=== PATIENT | female | born 1995 | race Caucasian/White ===

== ENCOUNTER 2019-08-14 10:01 | Emergency (ER) | payer OTHER, SELFPAY ==
[2019-08-14 10:12] VITALS: BP 117/83; PULSE 99; RESP 20; TEMP 37.8; O2SAT 99
--- NOTE | 2019-08-14 10:13 | ED.GENADULT ---
HPI - General Adult General Chief complaint: Skin/Abscess/Foreign Body Stated complaint: bug bite on right leg Time Seen by Provider: 08/14/19 10:20 Source: patient and RN notes reviewed Mode of arrival: ambulatory Limitations: no limitations History of Present Illness HPI narrative: This is a 24 years old female presented to the office for evaluation of insect bite since yesterday. She was outside in her yard when she got multiple insect bite on her right lower legs near her ankle. She is otherwise feeling well. No treatment prior to arrival. She is breast-feeding her 1 year ago child. Related Data Allergies Allergy/AdvReac Type Severity Reaction Status Date / Time No Known Allergies Allergy Verified 08/14/19 10:19 Review of Systems Review of Systems: Narrative: CONSTITUTIONAL: Denies fever or feeling achy/sweating ENT: Denies congestion CARDIOVASCULAR: Denies chest pain RESPIRATORY: Denies cough GASTROINTESTINAL: Denies abdominal pain, nausea, vomiting SKIN: Reports itchy red bumps on her right legs MUSCULOSKELETAL: Denies joints pain NEUROLOGIC: Denies lightheaded PMFSH Comments At time of signature, I agree with nursing past medical, surgical, social and family history. There is no relevant family history pertinent to the presenting complaint. Exam Narrative: Exam Narrative: GENERAL: This is a well-nourished, well-developed patient, in no apparent distress. NECK: Neck supple, non-tender without lymphadenopathy, masses or thyromegaly. CARDIOVASCULAR: Regular rate and rhythm without murmurs, gallops, or rubs. RESPIRATORY: Clear to auscultation. Breath sounds equal bilaterally. No wheezes, rales, or rhonchi. GASTROINTESTINAL: Abdomen soft, non-tender, nondistended. Bowel sounds are active. No hepato-splenomegaly, or palpable masses. No guarding. SKIN: right later lower leg near lateral ankle noted a couple localize erythema nodule lesion, medial aspect noted two vesicular-erythema lesion without lymphadenititis. No calf edematous/erythema. NEURO: awake, alert, and oriented to person, place and time. There were no obvious focal neurologic abnormalities. Steady gait [place] Coma Scale Eye Opening: Spontaneous 4 [place] Coma Scale Motor: Obeys Commands 6 [place] Coma Scale Verbal: Oriented 5 Medical Decision Making MDM Narrative Medical decision making narrative: Discharge instructions reviewed with patient, as well as provided in writing per nursing staff. The instructions also include specific and strict return/GO TO THE ER as well as f/u information. All questions have been answered, and the patient deny any further questions with discharge and discharge plan. Differential Diagnosis Differential Diagnosis: Contact/allergic dermatitis, atopic dermatitis, psoriasis, eczema, cellulitis, tinea, erythema multiforme, viral exanthem Critical Care Time Critical Care Time Critical Care Time: No Discharge Plan Discharge Clinical Impression: Insect bite Qualifiers: Encounter type: initial encounter Site of insect bite: lower leg Laterality: right Qualified Code(s): S80.861A - Insect bite (nonvenomous), right lower leg, initial encounter Patient Disposition: Home, Self-Care Condition: Stable Instructions: Insect Bite or Sting (ED) Additional Instructions: Your tetanus booster is good after 10-year unless you have a major wound nocardial may need a booster in 5 years You can stop taking prednisone when redness resolved; make sure NOT breast feeling at least 4hours after taking prednisone. Wash the area with soap and cool water only. Avoid scratching when possible to prevent worsening of the condition and disruption of the skin that could lead to bacterial infection To relieve itching, place a cool washcloth or some ice over the area that itches, rather than scratching You can also take 25mg of benadryl at night to help reduce itchiness/swelling/redness Follow up with primary care provider or seek ER if you magana
[2019-08-14] MEDS: TETANUS,DIPHTHERIA,AC PERTUSSIS ADULT 0.5 ML (ADACEL) IM (10:39)
== END 2019-08-14 10:55 | disposition home or self-care (01) ==
PROVIDERS: Emergency Provider Nurse Practitioner; PCP Nurse Practitioner Adult Health
DX: S90.561A Insect bite (nonvenomous), right ankle, initial encounter (principal); W57.XXXA Bitten or stung by nonvenomous insect and other nonvenomous arthropods, initial encounter
CPT/HCPCS: 90471; 90715; 99213; G0463

== ENCOUNTER 2020-05-26 17:04 | Emergency (ER) | payer OTHER, SELFPAY ==
--- NOTE | ~2020-05-26 | XR_ITS ---
XR knee LT min 4V 05/26/2020 17:37 INDICATION: Left knee pain PROCEDURE: 5 views left knee COMPARISON: No prior studies for comparison. FINDINGS: Fracture, dislocation or subluxation is not identified. No significant joint effusion. The soft tissues appear within normal limits. No foreign bodies are identified. IMPRESSION: 1: NO ACUTE BONE OR JOINT ABNORMALITY IDENTIFIED. Reviewed, dictated and finalized at location [facility]
[2020-05-26 17:12] VITALS: BP 116/65; PULSE 84; RESP 20; TEMP 36.8; O2SAT 99
--- NOTE | 2020-05-26 17:21 | ED.LOWEXIN ---
HPI - Extremity Injury (Lower) General Chief Complaint: Extremity Injury, Lower Stated Complaint: left knee injury Time Seen by Provider: 05/26/20 17:21 Source: patient Mode of arrival: ambulatory Limitations: no limitations History of Present Illness HPI Narrative: Aida Zaldivar is a 25 yo female with no PMH who comes to [facility] for evaluation of left knee after twisting injury while caring a young child. Her foot did move when she turned to direction and the pain dropped her to her knee she has been unable to walk on her L leg since then and on exam her kneecap is extremely lax Patient denies any prior injury or trauma Related Data Home Medications Medication Instructions Recorded Confirmed norethindrone (contraceptive) 0.35 mg PO DAILY 05/26/20 05/26/20 [Norlyda] Allergies Allergy/AdvReac Type Severity Reaction Status Date / Time No Known Allergies Allergy Verified 05/26/20 17:39 Review of Systems Review of Systems: Narrative: CONSTITUTIONAL: Denies fever, chills, sweats. EYES: Denies visual changes, redness, discharge. ENT: Denies rhinorrhea, congestion, sore throat, otalgia. CARDIOVASCULAR: Denies chest pain, palpitations, edema. RESPIRATORY: Denies dyspnea, wheezing, cough GASTROINTESTINAL: Denies abdominal pain, nausea, vomiting, diarrhea. GENITOURINARY: Denies dysuria, hematuria, abnormal discharge SKIN: Denies rash or itching. NEUROLOGIC: Denies numbness, or focal weakness. PSYCHIATRIC: Denies anxiety or depression. WPain and weakness in L left knee PMFSH Past Medical History Medical History No acute medical problems Family History Family History Other No acute medical problems Social History Social History (Updated 05/26/20 @ 17:44 by Andreia Rivera CNP) Smoking status: Never smoker Alcohol intake: current Comments At time of signature, I agree with nursing past medical, surgical, social and family history. There is no relevant family history pertinent to the presenting complaint. Exam Narrative: Exam Narrative: GENERAL: This is a well-nourished, well-developed patient, in moderate distress. HEAD: normocephalic, atraumatic. EYES:. Sclera clear/white. Vision is grossly intact. EARS: External ears normal, Hearing grossly intact. NOSE: External nose normal without nasal discharge, nares without redness, no rhinorrhea. THROAT: Mucous membranes moist, NECK: Neck supple, CARDIOVASCULAR: Regular rate and rhythm without murmurs, gallops, or rubs. RESPIRATORY: Clear to auscultation. Breath sounds equal bilaterally. No wheezes, rales, or rhonchi. GASTROINTESTINAL: Abdomen soft, SKIN: warm, intact with no suspicious lesions or rash, good texture and turgor. NEURO: awake, alert, and oriented to person, place and time. There were no obvious focal neurologic abnormalities. Steady gait EXTREMITIES: Normal range of motion. Moderate blood on the left unable to stand without pain there is laxity in her patellae with more pain on the tibial plateau and left superior pole of patella. Unable to walk without pain Skin warm, pulses intact BACK: Nontender without deformity Course Course Emergency Course: Patient came after torsional injury to left knee X-ray of left knee is negative for acute bone or joint abnormality no significant joint effusion Patient already on crutches but will put in a knee immobilizer give antiinflammatories and pain medication ExplainedRICE to patient over the weekend, ectopy appointment with orthopod Vital Signs Vital signs: Vital Signs Temperature 98.3 F 05/26/20 17:12 Pulse Rate 84 05/26/20 17:12 Respiratory Rate 20 05/26/20 17:12 Blood Pressure 116/65 05/26/20 17:12 Pulse Oximetry 99 05/26/20 17:12 Temperature 98.3 F 05/26/20 17:12 Pulse Rate 84 05/26/20 17:12 Respiratory Rate 20 05/26/20 17:12 Blood Pressure 11
== END 2020-05-26 17:55 | disposition home or self-care (01) ==
PROVIDERS: Emergency Provider Nurse Practitioner; PCP Nurse Practitioner Adult Health
DX: M25.562 Pain in left knee (principal)
CPT/HCPCS: 73564; 99213; G0463; L1830

== ENCOUNTER 2022-03-18 10:27 | Emergency (ER) | payer OTHER, SELFPAY ==
[2022-03-18 10:34] VITALS: BP 121/73; PULSE 96; RESP 16; TEMP 37.6; O2SAT 100
--- NOTE | 2022-03-18 11:16 | ED.URI ---
HPI - URI/Sore Throat General Chief Complaint: Upper Respiratory Infection Stated Complaint: ears clogged fatigue Time Seen by Provider: 03/18/22 11:16 Source: patient, RN notes reviewed and old records reviewed Mode of arrival: ambulatory Limitations: no limitations History of Present Illness HPI Narrative: 27-year-old female presents to the [facility] with complaints of bilateral ear pain since Friday. Vomited 1 time on Friday she thinks it was related to a migraine. Took Excedrin which has helped. Requesting a work note Related Data Home Medications Medication Instructions Recorded Confirmed norethindrone (contraceptive) 0.35 0.35 mg PO DAILY 05/26/20 03/18/22 mg tablet (Norlyda) mirtazapine 7.5 mg tablet 7.5 mg PO HS 03/18/22 03/18/22 Allergies Allergy/AdvReac Type Severity Reaction Status Date / Time No Known Allergies Allergy Verified 03/18/22 10:48 Review of Systems Review of Systems: All systems reviewed & are unremarkable except as noted in HPI and below Constitutional: Constitutional: Reports as per HPI, Reports body ache(s), Denies chills, Denies fever(s) and Denies headache(s) Eyes: Eyes: Reports no additional eye complaints ENT: Reports as per HPI, Reports otalgia (bilateral), Reports headache(s) and Reports nasal congestion Cardiovascular: Cardiovascular: Reports no additional cardiovascular complaints, Denies chest pain and Denies dyspnea Respiratory: Respiratory: Reports no additional respiratory complaints and Denies dyspnea Gastrointestinal: Gastrointestinal: Reports no additional gastrointestinal complaints and Denies abdominal pain Musculoskeletal: Musculoskeletal: Reports no additional musculoskeletal complaints Integumentary/Breasts: Skin/Breast: Reports system reviewed and no additional complaints, except as docu Neurologic: Reports system reviewed and no additional complaints, except as documented and Denies headache(s) Psychiatric: Psychiatric: Reports no additional psychiatric complaints Allergic/Immunologic: Allergic/Immunologic: Reports no additional allergic/immunologic complaints PMFSH Past Medical History Medical History No acute medical problems Family History Family History Other No acute medical problems Social History Social History Smoking status: Never smoker Alcohol intake: current Comments At the time of my signature, I reviewed and agree with the nursing past medical, surgical, social, and family history. There is no relevant family history pertinent to the patient complaint. Exam Const: General: cooperative, healthy appearing, comfortable, no acute distress, well developed, alert and well nourished Nutritional Appearance: well nourished Orientation/consciousness: patient oriented x3 Limitations: no limitations HENMT: Head: normal to inspection Ears: external ears normal, Abnormal EAC present and TM abnormal wth effusion serous bilateral; not erythematous Face/Nose/Sinus: Normal external nose present, Normal nares present, Normal nasal mucous membranes and turbinates present and normal facial exam Face and sinus: normal facial exam Mouth: Yes Normal oral and palatal mucosa present, Yes lip normal and Yes moist mucous membranes abnormal Throat: posterior oropharynx normal and uvula midline Eyes: General: appearance normal, both eyes and all related structures Alignment and Position: alignment normal Conjunctivae: conjunctivae normal Pupils: Equal, round and reactive pupils present Neck: Neck: normal visual inspection, full ROM, no lymphadenopathy and no meningeal signs Chest: Chest palpation & inspection: normal inspection of the chest Resp: Effort & Inspection: normal respiratory effort and no use of accessory muscles Auscultation: clear to auscultation bilaterally, no crabber
== END 2022-03-18 11:26 | disposition home or self-care (01) ==
PROVIDERS: Emergency Provider Nurse Practitioner
DX: H65.03 Acute serous otitis media, bilateral (principal); J06.9 Acute upper respiratory infection, unspecified
CPT/HCPCS: 99213; G0463

== ENCOUNTER 2022-12-17 09:09 | Emergency (ER) | payer OTHER, SELFPAY ==
[2022-12-17 09:14] VITALS: BP 147/93; PULSE 82; RESP 18; TEMP 37; O2SAT 100
--- NOTE | 2022-12-17 10:23 | ED.EAR ---
HPI - Ear Problem General Chief complaint: Ear Stated complaint: Ear pain History of Present Illness HPI Narrative: Pt is a 27 y/o female, presents to with left otalgia for the past few days, popping and pain with chewing. She denies drainage from the ear, fevers or chills and she has no additional URI symptoms. she does admit to grinding her teeth and notes she often has a headache or popping in the left TMJ with chewing. She denies trauma, dentalgia or any other associated symptoms. She is not . Related Data Home Medications Medication Instructions Recorded Confirmed norethindrone (contraceptive) 0.35 0.35 mg PO DAILY 05/26/20 03/18/22 mg tablet (Norlyda) mirtazapine 7.5 mg tablet 7.5 mg PO HS 03/18/22 03/18/22 buspirone 10 mg tablet mg 12/17/22 fluoxetine 20 mg capsule mg 12/17/22 Allergies Allergy/AdvReac Type Severity Reaction Status Date / Time No Known Allergies Allergy Verified 03/18/22 10:48 Review of Systems Constitutional: Comments: no fevers or chills ENT: Reports as per [facility] Past Medical History Medical History No acute medical problems Family History Family History Other No acute medical problems Social History Social History Smoking status: Never smoker Alcohol intake: current Exam Const: General: healthy appearing, no acute distress and alert Nutritional Appearance: well nourished Orientation/consciousness: patient oriented x3 Limitations: no limitations HENMT: Head: normal to inspection Ears: external ears normal, EAC's normal and TM abnormal (pt has serous pattern bilaterally. Lef TM is retracted mildly. No erythema) Face/Nose/Sinus: Normal external nose present and Normal nares present Face and sinus: normal facial exam and sinuses nontender Teeth and gingiva: dentition normal Throat: posterior oropharynx normal Other: Pt is TTP over the left TMJ. Clicking noted with opening of the mandible fully at the TMJ. No deformity or erythema/swelling noted.No preauricular node or TTP with palpation or manipulation of the left auricle Eyes: Conjunctivae: conjunctivae normal EOM: EOMs intact bilaterally Neck: Neck: normal visual inspection, no lymphadenopathy and no meningeal signs Resp: Effort & Inspection: normal respiratory effort Auscultation: clear to auscultation bilaterally Cardio: Rate: regular rate Rhythm: regular rhythm Skin: General skin exam: normal color Rashes: no rashes Neuro: General: patient oriented x3, moves all extremities, no meningeal signs, no focal motor deficits and CN's II-XI intact bilaterally Extrem: General: normal to inspection and no clubbing, cyanosis or edema Course Course Emergency Course: suspect TMJ versus eustachian tube dysfuncton. Plan to treat with short steroid course, PCP or dental FU stressed if pain is not improving. Pt is agreeable with plan. OTC antihistamines encouraged additionally. Level of Care: Express Care Visit (16269) Vital Signs Vital signs: Vital Signs Temperature 37.0 C 12/17/22 09:14 Pulse Rate 82 12/17/22 09:14 Respiratory Rate 18 12/17/22 09:14 Blood Pressure 147/93 H 12/17/22 09:14 Pulse Oximetry 100 12/17/22 09:14 Oxygen Delivery Room Air 12/17/22 09:14 Temperature 37.0 C 12/17/22 09:14 Pulse Rate 82 12/17/22 09:14 Respiratory Rate 18 12/17/22 09:14 Blood Pressure 147/93 H 12/17/22 09:14 Pulse Oximetry 100 12/17/22 09:14 Oxygen Delivery Room Air 12/17/22 09:14 Medical Decision Making [facility] Narrative Medical decision making narrative: no infectious findings. Plan for steroids OTC antihistamines, PCP FU Differential Diagnosis Differential Diagnosis: TMJ, Eustachian tube dysfunction, serous oM Vital Signs Vital Signs: Vital Signs Temperature 37.0
== END 2022-12-17 10:35 | disposition home or self-care (01) ==
PROVIDERS: Emergency Provider Nurse Practitioner Family
DX: H65.02 Acute serous otitis media, left ear (principal); M26.602 Left temporomandibular joint disorder, unspecified
CPT/HCPCS: 99213; G0463